=== PATIENT | female | born 1985 | race Caucasian/White ===

== ENCOUNTER 2023-09-05 07:29 | Emergency (ER) | payer BC, SELFPAY ==
[2023-09-05 07:36] VITALS: BP 154/95
--- NOTE | 2023-09-05 08:18 | ED.GENMED ---
History of Present Illness
General
Chief Complaint: Female Bung Dropper/Gu symptoms
Source: patient
Exam Limitations: none
Time Seen by Provider: 09/05/23 08:10
Nursing documentation reviewed up to this point in time: agreed with
Travel History
Have you had any contact with someone who has COVID-19?: No
Do you have any symptoms of coronavirus? Fever > 100 degrees, chills, cough, shortness of breath, sore throat, loss of taste or smell, muscle aches, or headache?: No
History of Present Illness
History of Present Illness:
Patient presents to ED secondary to recurrent right flank with nausea sensation, which woke the patient up from sleep this morning at 3:30 AM. Patient has had multiple similar symptoms in the past, secondary to kidney stones. Patient proceeded to
take Percocet at that time, which did not alleviate her symptoms. Patient's last kidney stones episode was in March 2023, when she was seen at [facility], where she received lithotripsy and stent placement. Denies vomiting. Denies fever.
Denies trauma. Denies recent illness. Denies recent change activities. Denies difficulty with urination.
Past History
Past History
ED Past Medical History: Asthma and Other (kidney stones)
ED Past Surgical History: Urological (cysto/stents)
Social History
Tobacco: Non-smoker
Personal:
Living: with family
Review of Systems
Review of Systems
Allergies reviewed?: Yes
All Other Systems: ROS reviewed and negative except as documented in HPI and ROS
Constitutional: Reports no symptoms; Denies fever
ABD/GI: Reports nausea and vomiting
: Reports flank pain; Denies difficulty voiding
Musculoskeletal: Reports no symptoms
Skin: Reports no symptoms
Neurological: Reports no symptoms
Phy Exam
Physical Exam
Physical Exam:
Physical Exam
General: mild painful distress, not acutely ill. afebrile
Head: nc/at. eomi
Neck: supple. normal range of motion
Abdomen: normal bowel sounds. not tender.
Neuro: alert and oriented. no focal neurological deficits
Skin: no rash
Psychiatric: well kept. interactive and cooperative
Extremities: no edema. no calf tenderness.
Course
Orders/Labs/Results
Orders:
Orders
09/05/23 08:17
0.9% Sodium Chloride 500 ml [Nss] 500 ml IV BOLUS
Ketorolac [Toradol] 30 mg IV NOW STA
Ondansetron Injectable [Zofran] 4 mg IV NOW STA
Test Result ONCE
US Renal Only W/O Bladder Urgent
Comment:
Reason For Exam: right flank pain w hx kidney stones
09/05/23 08:33
Basic Metabolic Panel Urgent
Complete Blood Count/With Diff Urgent
HCG, Serum Qualitative Screen Urgent
Urinalysis Reflex To Culture Urgent
Date Specimen was Collected: 09/05/23
Time Specimen was Collected: 08:32
Urine Microscopic Reflex Cult Urgent
09/05/23 10:18
Morphine Sulfate 2 mg .ROUTE .STK-MED ONE
09/05/23 10:19
Morphine Sulfate 2 mg IV NOW STA
09/05/23 11:53
CR Abdomen - 1 View Urgent
Comment:
Reason For Exam: right flank pain w hx kidney stone
09/05/23 13:12
HYDROmorphone [Dilaudid] 0.5 mg .ROUTE .STK-MED ONE
HYDROmorphone [Dilaudid] 0.5 mg IV NOW STA
09/05/23 13:57
CT Abd/pel Without Iv Or Oral Urgent
Comment:
Reason For Exam: right flank pain with hematuria
09/05/23 15:43
Morphine Sulfate 2 mg IV NOW STA
Abnormal Lab Results
09/05/23
08:33
MCH 31.6 H pg
(27.0-31.0)
Glucose 111 H mg/dl
(70-99)
Ur Occult Blood Reflex 2+ A
(Negative)
Leukocyte Esterase Rfl Trace A
(Negative)
Urine RBC 40-50 A /HPF
(0-2)
Urine Bacteria (Reflex) Few A
(Negative)
09/05/23 08:33
09/05/23 08:33
Vital Signs
Initial and Last Documented VS:
Initial Vital Signs
Temp Pulse Resp BP Pulse Ox
97.9 F 104 18 154/95 98
09/05/23 07:36 09/05/23 07:36 09/05/23 07:36 09/05/23 07:36 09/05/23 07:36
Last Documented Vital Signs
Temp Pulse Resp BP Pulse Ox
98.1 F 82 18 138/90 98
09/05/23 13:17 09/05/23 15:50 09/05/23 15:50 09/05/23 15:50 09/05/23 15:50
MDM/Problems Addressed
MDM/Problems Addressed:
Patient with moderate improvement in symptoms after treatment. Patient remains afebrile and hemodynamically stable. Patient with likely recurrent renal colic, secondary to obstructing stone. However, urinalysis without any evidence of infection
with normal kidney function. As such, we will withhold CT scan at this time, and refer patient to urology for an outpatient follow-up. Patient will return to ED with worsening symptoms, i.e. fever/worsening pain/inability urinate. Patient
expresses understanding at time of discharge. Patient states that she has enough Flomax tablets at home. As such, patient will be given prescription for Percocet and Zofran ODT.
*Critical Care Note
Total Time (30-74mins, 75-104mins- exclusive of procedures): Not Applicable
ED Attending Note
-
Portions of this chart may have been created with voice recognition software.� Occasional wrong word or��sound alike� substitutions may have occurred due to the inherent limitations of voice recognition software.
Discharge Plan
Departure
Patient Disposition: Home (Routine Discharge)
Date of Disposition: 09/05/23
Time of Disposition: 15:26
Patient with high blood pressure during this ER visit?: Yes
Discharge Problem:
Hydronephrosis with renal and ureteral calculous obstruction
Instructions: Renal Colic (DC)
Prescriptions:
New
oxycodone-acetaminophen [Percocet] 5-325 mg Tablet
1 tab PO Q6HPRN PRN (Reason: pain) Qty: 12 0RF
ondansetron 4 mg Tablet,Disintegrating
4 mg PO TIDPRN PRN (Reason: nausea/vomiting) Qty: 12 0RF
No Action
hydrochlorothiazide 25 MG tablet
25 mg PO DAILY
sertraline 50 MG tablet
75 mg PO DAILY
cetirizine 10 MG tablet
10 mg PO HS
amitriptyline 25 MG tablet
25 mg PO DAILY
Patient Comments:
on hold
levofloxacin [Levaquin] 500 MG tablet
500 mg PO DAILY
doxycycline hyclate 100 MG capsule
100 mg PO BID Qty: 5 0RF
Referrals:
Eliceo Zamorano MD [Active] -
Irma Moran CRNP [Family Provider] -
Activity Restrictions/Additional Instructions:
As discussed, please follow-up with your urologist for further evaluation and treatment. Please return to ED with worsening symptoms, i.e. fever/worsening pain/inability to urinate/vomiting. Your prescriptions have been sent electronically to [facility]
pharmacy in [place].
Interventions
Interventions:
*Risk Screen - Suicide Last Done: 09/05/23 07:36
*General Assessment Last Done: 09/05/23 07:36
*Neglect/Abuse Screening Last Done: 09/05/23 07:36
ED- Fall Risk Assessment Last Done: 09/05/23 16:21
*ED COVID-19 Vaccine History Last Done: 09/05/23 07:36
*Nursing Disposition Last Done: 09/05/23 16:21
ED-Female Genitourinary Assessment Last Done: 09/05/23 08:39
Discharge Date and Time
Discharge Date/Time: 09/05/23 16:21
[2023-09-05 08:24] VITALS: BMI 31.9
[2023-09-05] MEDS: TORADOL 30 MG IV (08:34)
[2023-09-05] MEDS: ZOFRAN 4 MG IV (08:36)
[2023-09-05] MEDS: NSS 500 IV (08:38)
[2023-09-05 09:09] LABS: % Basophils 0.4 % (0-2); % Eosinophils 1.8 % (0-6); % Immature Granulocytes 0.4 % (0-0.5); % Lymphocytes 36.6 % (20.5-51.1); % Monocytes 7.3 % (1.7-9.3); % Neutrophils 53.5 % (42.2-75.2); Absolute Eosinophils 0.2 10^3/uL (0-0.7); Absolute Monocytes 0.6 10^3/uL (0.1-0.6); Absolute Neutrophils 4.4 10^3/uL (1.4-6.5); Hematocrit 40.2 % (37.0-47.0); Hemoglobin 14.7 g/dL (12.0-16.0); Mean Corp Hgb Conc. 36.6 g/dL (33.0-37.0); Mean Corpuscular Hgb 31.6 pg (27.0-31.0); Mean Corpuscular Volume 86.5 fL (81.0-99.0); Mean Platelet Volume 9.5 fL (7.4-10.4); Nucleated Red Blood Cells % 0 %; Platelet Count 305 10^3/uL (130-400); Red Blood Cell Count 4.65 10^6/uL (4.20-5.40); Red Cell Dist. Width 11.8 % (11.5-14.5); White Blood Cell Count 8.3 10^3/uL (4.8-10.8)
[2023-09-05 09:10] LABS: Urine Albumin Trace (Neg - Trace); Urine Bilirubin Negative (Negative); Urine Character Clear (Clear); Urine Color Straw; Urine Glucose Negative (Negative); Urine Ketone Negative (Negative); Urine Leukocyte Trace (Negative); Urine Nitrite Negative (Negative); Urine Occult Blood 2+ (Negative); Urine Urobilinogen Negative (Neg - 1+)
[2023-09-05 09:20] LABS: HCG, Serum Qualitative Screen Negative; Urine Squamous Cell 16-20 /LPF (Few)
[2023-09-05 09:21] LABS: Urine Bacteria Few (Negative); Urine Red Blood Cell 40-50 /HPF (0-2)
[2023-09-05 09:27] LABS: Blood Urea Nitrogen 15 mg/dl (7-17); Calcium 9.5 mg/dl (8.4-10.2); Carbon Dioxide 26 mmol/L (22-30); Chloride 101 mmol/L (98-107); Estimated Creatinine Clearance > 125 ml/min; Glucose 111 mg/dl (70-99); Potassium 4.3 mmol/L (3.5-5.1); Sodium 138 mmol/L (135-145); eGFR > 60.00
[2023-09-05] MEDS: MORPHINE SULFATE 2 MG IV ×2 (10:19→15:45)
[2023-09-05] MEDS: DILAUDID 0.5 MG IV (13:14)
[2023-09-05 13:17] VITALS: BP 132/90
[2023-09-05 15:50] VITALS: BP 138/90
== END 2023-09-05 16:21 | disposition home or self-care (01) ==
LOC: EMR 07:29
PROVIDERS: EMERGENCY PHYSICIAN Emergency Medicine; FAMILY PHYSICIAN Nurse Practitioner
DX: N13.2 Hydronephrosis with renal and ureteral calculous obstruction (principal); R03.0 Elevated blood-pressure reading, without diagnosis of hypertension; Z87.442 Personal history of urinary calculi
CPT/HCPCS: 99285; 96374; 96375 ×3; 96361; 96376; 74018; 74176; 76775; 80048; 81003; 81015; 84703; 85025

== ENCOUNTER 2024-05-28 09:08 | Emergency (ER) | payer BC, SELFPAY ==
[2024-05-28 09:16] VITALS: BP 144/101
[2024-05-28 09:33] LABS: Urine Albumin Negative (Neg - Trace); Urine Bilirubin Negative (Negative); Urine Character Clear (Clear); Urine Color Yellow; Urine Glucose Negative (Negative); Urine Ketone Negative (Negative); Urine Leukocyte Trace (Negative); Urine Nitrite Negative (Negative); Urine Occult Blood Negative (Negative); Urine Urobilinogen Negative (Neg - 1+)
[2024-05-28 09:37] VITALS: BMI 32.4
--- NOTE | 2024-05-28 09:45 | ED.GENMED ---
History of Present Illness
General
Chief Complaint: Flank Pain
Time Seen by Provider: 05/28/24 09:20
History of Present Illness
History of Present Illness:
39-year-old female with history of multiple kidney stones presenting to the emergency department for left-sided flank pain. Patient reports symptoms started midnight yesterday, worsened at 7 AM this morning. Reports that symptoms feel similar to
prior kidney stones. She reports history of lithotripsy and stenting. She tried Flomax at home as well as Percocet without significant relief. Notes nausea without vomiting. Reports urinary urgency, denies dysuria. Denies chest pain or
difficulty breathing. Reports some left-sided abdominal pain. Denies any fever. Denies additional acute medical complaints
Past History
Past History
ED Past Medical History: Asthma and Other (kidney stones)
ED Past Surgical History: Urological (cysto/stents)
Social History
Tobacco: Non-smoker
Personal:
Living: with family
Phy Exam
Physical Exam
Physical Exam:
General: Well-appearing, no clinical signs of dehydration, nontoxic and in no acute distress
HEENT: protecting airway
Neck: appears supple
CV: Normal heart rate, regular rhythm
Resp: No accessory muscle use, no increased work of breathing, lungs clear to auscultation bilaterally
Abd: Soft and non-distended, minimal tenderness to the left lower quadrant and left CVA
Extremities: No deformities, no swelling
Neuro: alert, no focal neurologic deficit
: deferred
Rectal: deferred
Psych: Normal affect
Skin: Intact
Course
Orders/Labs/Results
Orders:
Orders
05/28/24 09:24
HCG, Urine Qualitative Screen Urgent
Date Specimen was Collected: 05/28/24
Time Specimen was Collected: 09:23
Comment: ADD ON
Urinalysis Reflex To Culture Urgent
Date Specimen was Collected: 05/28/24
Time Specimen was Collected: 09:23
Urine Microscopic Reflex Cult Urgent
05/28/24 09:38
CT Abd/pel Without Iv Or Oral Urgent
Comment:
Reason For Exam: L-flank, hx stones
HCG, Urine Qualitative Screen Urgent
0.9% Sodium Chloride 1000 ml [Nss] 1,000 ml IV BOLUS
HYDROmorphone [Dilaudid] 1 mg IV NOW STA
Ondansetron Injectable [Zofran] 4 mg IV NOW STA
Test Result ONCE
05/28/24 09:40
Add On- LAB Urgent
Tests Added?: Urine HCG
05/28/24 09:57
Complete Blood Count/With Diff Urgent
Comprehensive Metabolic Panel Urgent
05/28/24 10:31
HYDROmorphone [Dilaudid] 1 mg IV NOW STA
05/28/24 11:24
NSS 1000mL Bolus WIDE OPEN 0.9% Sodium Chloride 1000 ml [Nss] 1,000 ml IV BOLUS
Abnormal Lab Results
05/28/24 05/28/24
09:24 09:57
Hct 36.5 L %
(37.0-47.0)
MCH 31.4 H pg
(27.0-31.0)
Potassium 3.2 L mmol/L
(3.5-5.1)
Glucose 105 H mg/dl
(70-99)
Leukocyte Esterase Rfl Trace A
(Negative)
05/28/24 09:57
05/28/24 09:57
Vital Signs
Initial and Last Documented VS:
Initial Vital Signs
Temp Pulse Resp BP Pulse Ox
98.0 F 96 18 144/101 99
05/28/24 09:16 05/28/24 09:16 05/28/24 09:16 05/28/24 09:16 05/28/24 09:16
Last Documented Vital Signs
Temp Pulse Resp BP Pulse Ox
98.0 F 74 16 115/83 99
05/28/24 09:16 05/28/24 10:30 05/28/24 10:30 05/28/24 10:30 05/28/24 09:16
MDM/Problems Addressed
MDM/Problems Addressed:
39-year-old female with history of kidney stones presenting with concern of kidney stone. Vital signs on arrival are significant for mild hypertension.
On exam patient is resting comfortably, no acute distress. Benign cardiac and pulmonary exam. Minimal tenderness to the left lower quadrant of the abdomen and left flank. On review of EMR, multiple visits for similar symptoms in the past,
consistent with kidney stone. At this time do suspect kidney stone. Lower suspicion for infected kidney stone, nontoxic. Patient offered ultrasound rather than CT, however explains that she would prefer to proceed with CT. For this reason we
will obtain laboratory analysis, urinalysis, CT imaging. Patient requesting Dilaudid for pain. Will also administer IV fluids and Zofran
11:20 -pain has improved. No signs of infection, no leukocytosis, no signs of infection in urine. CT is consistent with a 3 mm stone. Given size, suspect that it will hopefully pass on its own. Patient is requesting more IV fluids, reports that
during the past. Will administer with ultimate plan for outpatient follow-up and pain management at home. Patient reports that she takes Percocet at home for kidney stones. Will prescribe. Otherwise remains hemodynamically stable, stable for
discharge
*Critical Care Note
Total Time (30-74mins, 75-104mins- exclusive of procedures): Not Applicable
ED Attending Note
-
Portions of this chart may have been created with voice recognition software.� Occasional wrong word or��sound alike� substitutions may have occurred due to the inherent limitations of voice recognition software.
Discharge Plan
Departure
Patient with high blood pressure during this ER visit?: Yes
Condition: Good
Discharge Problem:
Hydronephrosis with renal and ureteral calculous obstruction
Instructions: Kidney Stones (DC), How to Strain Your Urine, BLOOD PRESSURE, Narcotic Pain Medication
Prescriptions:
New
oxycodone-acetaminophen [Endocet] 5-325 mg tablet
1 tab PO Q8H PRN (Reason: Pain) Qty: 9 0RF
No Action
hydrochlorothiazide 25 MG tablet
25 mg PO DAILY
sertraline 50 MG tablet
75 mg PO DAILY
cetirizine 10 MG tablet
10 mg PO HS
amitriptyline 25 MG tablet
25 mg PO DAILY
Patient Comments:
on hold
levofloxacin [Levaquin] 500 MG tablet
500 mg PO DAILY
doxycycline hyclate 100 MG capsule
100 mg PO BID Qty: 5 0RF
oxycodone-acetaminophen [Percocet] 5-325 mg Tablet
1 tab PO Q6HPRN PRN (Reason: pain) Qty: 12 0RF
ondansetron 4 mg Tablet,Disintegrating
4 mg PO TIDPRN PRN (Reason: nausea/vomiting) Qty: 12 0RF
Referrals:
Anam Leroy MD [Active] -
Irma Moran CRNP [Family Provider] -
Activity Restrictions/Additional Instructions:
You were seen in the emergency department for kidney stone
You were found to have a 3 mm left-sided kidney stone
Please follow-up closely with your urologist. Continue to take your Flomax at home.
Return to the emergency department for any worsening of your symptoms, or any development of chest pain, difficulty breathing, abdominal pain with persistent vomiting and inability to tolerate food or liquid by mouth (concern for dehydration),
weakness, headache or confusion, fever greater than 100.4, or any additional symptoms that are concerning to you.
Thank you for choosing [facility].
Interventions
Interventions:
*Risk Screen - Suicide Last Done: 05/28/24 09:16
*General Assessment Last Done: 05/28/24 09:16
*Neglect/Abuse Screening Last Done: 05/28/24 09:21
ED- Fall Risk Assessment Last Done: 05/28/24 09:59
*ED COVID-19 Vaccine History Last Done: 05/28/24 09:37
CK-Wgkhik-Ddvthoahcd Assessment Last Done: 05/28/24 09:38
ED-Female Genitourinary Assessment Last Done: 05/28/24 09:38
Discharge Date and Time
Print Language: PERSIAN
[2024-05-28] MEDS: DILAUDID 1 MG IV ×3 (09:54→12:55)
[2024-05-28] MEDS: ZOFRAN 4 MG IV (09:54)
[2024-05-28] MEDS: NSS 1000 IV ×2 (09:55→11:53)
[2024-05-28 10:06] LABS: Urine Amorphous Seen; Urine Mucus Many
[2024-05-28 10:07] LABS: Urine Red Blood Cell 0-2 /HPF (0-2); Urine White Cell 0-2 /HPF (0-5)
[2024-05-28 10:09] LABS: % Basophils 0.7 % (0-2); % Eosinophils 2.3 % (0-6); % Immature Granulocytes 0.4 % (0-0.5); % Neutrophils 54.6 % (42.2-75.2); Absolute Basophils 0.1 10^3/uL (0-0.2); Absolute Eosinophils 0.2 10^3/uL (0-0.7); Absolute Lymphocytes 2.6 10^3/uL (1.2-3.4); Absolute Monocytes 0.5 10^3/uL (0.1-0.6); Hematocrit 36.5 % (37.0-47.0); Hemoglobin 13.3 g/dL (12.0-16.0); Mean Corp Hgb Conc. 36.4 g/dL (33.0-37.0); Mean Corpuscular Hgb 31.4 pg (27.0-31.0); Mean Corpuscular Volume 86.1 fL (81.0-99.0); Mean Platelet Volume 9.7 fL (7.4-10.4); Nucleated Red Blood Cells % 0 %; Platelet Count 278 10^3/uL (130-400); Red Blood Cell Count 4.24 10^6/uL (4.20-5.40); Red Cell Dist. Width 12.6 % (11.5-14.5); White Blood Cell Count 7.4 10^3/uL (4.8-10.8)
[2024-05-28 10:13] LABS: HCG, Urine Qualitative Screen Negative
[2024-05-28 10:23] LABS: ALT (SGPT) 29 U/L (0-35); AST (SGOT) 29 U/L (14-36); Albumin 4.3 g/dl (3.5-5.0); Alkaline Phosphatase 46 U/L (38-126); Blood Urea Nitrogen 17 mg/dl (7-17); Calcium 9.2 mg/dl (8.4-10.2); Carbon Dioxide 28 mmol/L (22-30); Chloride 99 mmol/L (98-107); Estimated Creatinine Clearance 93 ml/min; Glucose 105 mg/dl (70-99); Potassium 3.2 mmol/L (3.5-5.1); Sodium 140 mmol/L (135-145); Total Bilirubin 0.3 mg/dl (0.2-1.3); Total Protein 7.1 g/dl (6.3-8.2); eGFR > 60.00
[2024-05-28 10:30] VITALS: BP 115/83
[2024-05-28 12:25] VITALS: BP 120/82
== END 2024-05-28 14:10 | disposition home or self-care (01) ==
LOC: EMR 09:08
PROVIDERS: EMERGENCY PHYSICIAN Student in an Organized Health Care Education/Training Program; FAMILY PHYSICIAN Nurse Practitioner
DX: N13.2 Hydronephrosis with renal and ureteral calculous obstruction (principal); J45.909 Unspecified asthma, uncomplicated
CPT/HCPCS: 99284; 96374; 96375; 96376; 96361; 74176; 80053; 81003; 81015; 81025; 85025

== ENCOUNTER 2024-06-18 09:50 | Emergency (ER) | payer BC, SELFPAY ==
[2024-06-18 09:51] VITALS: BP 128/95
--- NOTE | 2024-06-18 10:42 | ED.GENMED ---
History of Present Illness
General
Chief Complaint: Abdominal Symptoms
Time Seen by Provider: 06/18/24 10:42
History of Present Illness
History of Present Illness:
TIME OF INITIAL ENCOUNTER: 10:45 AM
HPI: About 7 days ago, on the day that the patient came back from [place], she started having diarrhea. She has been intermittently having sharp stabbing pain as well. She went to urgent care 5 days ago and was encouraged to go to the emergency
department if her symptoms worsened. 2 days ago, she had blood work which apparently were unremarkable other than transaminases in the 50s. This does not feel like prior kidney stones.
EXAM:
GENERAL: Well appearing in no significant distress
HEENT: Moist oral mucosa
CARDIOVASCULAR: No murmurs, normal heart rate, regular rhythm, No chest wall tenderness
PULMONARY: No respiratory distress, breath sounds are clear and equal
ABDOMEN: Soft with no peritoneal signs, no tenderness
NEUROLOGIC: Excellent strength all extremities, no coordination deficits
PSYCHIATRIC: Appropriate mental status, normal insight and judgement
EXTREMITIES: Nontender, no edema, moves all extremities equally
SKIN: No rash, no lesions
NUMBER AND COMPLEXITY OF PROBLEMS ADDRESSED AT THE ENCOUNTER
� Chronic conditions affecting care: Frequent kidney stones
� Acute Exacerbation and/or Progression of Chronic Illness: This is an acute problem
� Differential Diagnosis includes: Gastroenteritis, viral syndrome, foodborne illness, C. difficile, colitis
AMOUNT AND/OR COMPLEXITY OF DATA TO BE REVIEWED AND ANALYZED
� I performed an independent evaluation of and my interpretation is:
EKG: Sinus 80, normal axis, normal intervals other than borderline first-degree AV block
CT:
X-rays:
Laboratory Studies: White count is normal at 8.8, hemoglobin is 15.2, potassium is 2.8, and transaminases are slightly elevated with an AST of 53 and ALT of 82 however the total bili is 0.6, lipase is also slightly elevated at
346, hCG negative
Other:
� Review of other/old records: I reviewed records, the patient had a CT of the abdomen pelvis 3 weeks ago that showed a 3 mm stone in the distal left ureter
� Clinical information was obtained by an independent historian: I spoke to at bedside
� Prescriptions/Medications Considered but not given:
� Further testing considered but not performed: Considered imaging however the patient does not have a gallbladder and CT imaging was obtained just 3 weeks ago
RISK OF COMPLICATIONS AND/OR MORBIDITY OR MORTALITY OF PATIENT MANAGEMENT
� Social determinants of health affecting care: Lives at home, was recently in [place]
� Discussion with other providers:
� Escalation of care including admission/observation vs risk of discharge considered: The patient was given Zofran and fluids
ANY OTHER UPDATES:
1 PM: I initially suggested trying oral replacement of potassium. She states she does not feel that she would be able to tolerate potassium. Will give IV potassium and keep in the emergency department for an extended period of time while potassium
infusing. She has remained comfortable in appearance and only intermittently has some stabbing episodes of pain.
Past History
Past History
ED Past Medical History: Asthma and Other (kidney stones)
ED Past Surgical History: Urological (cysto/stents)
Social History
Tobacco: Non-smoker
Personal:
Living: with family
Phy Exam
Physical Exam
Physical Exam:
See HPI
Course
Orders/Labs/Results
Orders:
Orders
06/18/24 10:51
Test Result ONCE
06/18/24 10:52
Complete Blood Count/With Diff Urgent
Comprehensive Metabolic Panel Urgent
HCG, Serum Qualitative Screen Urgent
Lipase Urgent
06/18/24 10:56
0.9% Sodium Chloride 1000 ml [Nss] 1,000 ml IV BOLUS
06/18/24 10:59
Ondansetron Injectable [Zofran] 4 mg IV NOW STA
06/18/24 12:48
Potassium Chloride Powder [Klor-Con] 60 meq PO NOW STA
06/18/24 13:00
Electrocardiogram (*1) Urgent
Reason for Study: Other
Other Reason for Exam: hypokalemia
EKG- Treatment ONCE
Ketorolac [Toradol] 15 mg IV NOW STA
06/18/24 13:16
Potassium Chloride [KCl] 40 meq 0.9% Sodium Chloride 250 ml [Nss] 250 ml IV NOW
Abnormal Lab Results
06/18/24
10:52
MCH 31.7 H pg
(27.0-31.0)
Absolute Monos (auto) 0.7 H 10^3/uL
(0.1-0.6)
Potassium 2.8 L mmol/L
(3.5-5.1)
Glucose 105 H mg/dl
(70-99)
AST 53 H U/L
(14-36)
ALT 82 H U/L
(0-35)
Lipase 346 H U/L
(23-300)
06/18/24 10:52
06/18/24 10:52
Vital Signs
Initial and Last Documented VS:
Initial Vital Signs
Temp Pulse Resp BP Pulse Ox
98.3 F 100 16 128/95 98
06/18/24 09:51 06/18/24 09:51 06/18/24 09:51 06/18/24 09:51 06/18/24 09:51
Last Documented Vital Signs
Temp Pulse Resp BP Pulse Ox
98.3 F 86 16 106/65 97
06/18/24 09:51 06/18/24 17:34 06/18/24 17:34 06/18/24 17:34 06/18/24 17:34
*Critical Care Note
Total Time (30-74mins, 75-104mins- exclusive of procedures): Not Applicable
ED Attending Note
-
Portions of this chart may have been created with voice recognition software.� Occasional wrong word or��sound alike� substitutions may have occurred due to the inherent limitations of voice recognition software.
Discharge Plan
Departure
Patient Disposition: Home (Routine Discharge)
Date of Disposition: 06/18/24
Time of Disposition: 12:59
Patient with high blood pressure during this ER visit?: Yes
Discharge Problem:
Acute hypokalemia
Instructions: Diarrhea in teens and adults, Hypokalemia
Prescriptions:
No Action
hydrochlorothiazide 25 MG tablet
25 mg PO DAILY
sertraline 50 MG tablet
75 mg PO DAILY
cetirizine 10 MG tablet
10 mg PO HS
amitriptyline 25 MG tablet
25 mg PO DAILY
Patient Comments:
on hold
levofloxacin [Levaquin] 500 MG tablet
500 mg PO DAILY
doxycycline hyclate 100 MG capsule
100 mg PO BID Qty: 5 0RF
oxycodone-acetaminophen [Percocet] 5-325 mg Tablet
1 tab PO Q6HPRN PRN (Reason: pain) Qty: 12 0RF
ondansetron 4 mg Tablet,Disintegrating
4 mg PO TIDPRN PRN (Reason: nausea/vomiting) Qty: 12 0RF
oxycodone-acetaminophen [Endocet] 5-325 mg tablet
1 tab PO Q8H PRN (Reason: Pain) Qty: 9 0RF
Referrals:
Irma Moran CRNP [Family Provider] -
Activity Restrictions/Additional Instructions:
Your potassium level is low at 2.8�we have given you IV potassium replacement. Pancreas and transaminase numbers are just minimally elevated.
Interventions
Interventions:
*Risk Screen - Suicide Last Done: 06/18/24 09:51
*General Assessment Last Done: 06/18/24 09:51
*Neglect/Abuse Screening Last Done: 06/18/24 09:51
*ED COVID-19 Vaccine History Last Done: 06/18/24 09:51
*Nursing Disposition Last Done: 06/18/24 17:52
UV-Diylyv-Ffvchefbsc Assessment Last Done: 06/18/24 11:00
Discharge Date and Time
Discharge Date/Time: 06/18/24 17:52
Print Language: QATARI
[2024-06-18 10:51] VITALS: BMI 31.3
[2024-06-18] MEDS: NSS 1000 IV (11:02)
[2024-06-18 11:04] LABS: Hematocrit 41.3 % (37.0-47.0); Hemoglobin 15.2 g/dL (12.0-16.0); Mean Corp Hgb Conc. 36.8 g/dL (33.0-37.0); Mean Corpuscular Hgb 31.7 pg (27.0-31.0); Mean Platelet Volume 9.2 fL (7.4-10.4); Platelet Count 311 10^3/uL (130-400); Red Cell Dist. Width 11.9 % (11.5-14.5); White Blood Cell Count 8.8 10^3/uL (4.8-10.8)
[2024-06-18] MEDS: ZOFRAN 4 MG IV (11:10)
[2024-06-18 11:11] LABS: ALT (SGPT) 82 U/L (0-35); AST (SGOT) 53 U/L (14-36); Albumin 4.8 g/dl (3.5-5.0); Alkaline Phosphatase 79 U/L (38-126); Blood Urea Nitrogen 11 mg/dl (7-17); Calcium 9.5 mg/dl (8.4-10.2); Carbon Dioxide 25 mmol/L (22-30); Chloride 99 mmol/L (98-107); Estimated Creatinine Clearance 103 ml/min; Glucose 105 mg/dl (70-99); HCG, Serum Qualitative Screen Negative; Lipase 346 U/L (23-300); Potassium 2.8 mmol/L (3.5-5.1); Sodium 138 mmol/L (135-145); Total Bilirubin 0.6 mg/dl (0.2-1.3); Total Protein 7.9 g/dl (6.3-8.2); eGFR > 60.00
[2024-06-18 11:54] LABS: % Basophils 0.8 % (0-2); % Eosinophils 1.8 % (0-6); % Immature Granulocytes 0.5 % (0-0.5); % Monocytes 7.7 % (1.7-9.3); % Neutrophils 57.2 % (42.2-75.2); Absolute Basophils 0.1 10^3/uL (0-0.2); Absolute Eosinophils 0.2 10^3/uL (0-0.7); Absolute Lymphocytes 2.8 10^3/uL (1.2-3.4); Absolute Monocytes 0.7 10^3/uL (0.1-0.6); Nucleated Red Blood Cells % 0 %
[2024-06-18] MEDS: KCL 270 MEQ IV (13:37)
[2024-06-18] MEDS: TORADOL 15 MG IV (13:37)
[2024-06-18 17:34] VITALS: BP 106/65
== END 2024-06-18 17:52 | disposition home or self-care (01) ==
LOC: EMR 09:50
PROVIDERS: EMERGENCY PHYSICIAN Emergency Medicine; FAMILY PHYSICIAN Nurse Practitioner
DX: E87.6 Hypokalemia (principal); J45.909 Unspecified asthma, uncomplicated; Z87.442 Personal history of urinary calculi
CPT/HCPCS: 99283; 96374; 96375; 96361; 80053; 83690; 84703; 85025; 93005

== ENCOUNTER 2024-08-16 19:15 | Emergency (ER) | payer BC, SELFPAY ==
[2024-08-16 19:18] VITALS: BP 137/95
[2024-08-16 19:38] LABS: % Basophils 0.6 % (0-2); % Eosinophils 2.3 % (0-6); % Immature Granulocytes 0.3 % (0-0.5); % Monocytes 6.2 % (1.7-9.3); % Neutrophils 47.6 % (42.2-75.2); Absolute Basophils 0.1 10^3/uL (0-0.2); Absolute Eosinophils 0.2 10^3/uL (0-0.7); Absolute Lymphocytes 3.4 10^3/uL (1.2-3.4); Absolute Monocytes 0.5 10^3/uL (0.1-0.6); Absolute Neutrophils 3.8 10^3/uL (1.4-6.5); Hematocrit 37.9 % (37.0-47.0); Hemoglobin 13.4 g/dL (12.0-16.0); Mean Corp Hgb Conc. 35.4 g/dL (33.0-37.0); Mean Corpuscular Hgb 31.5 pg (27.0-31.0); Mean Platelet Volume 9.2 fL (7.4-10.4); Nucleated Red Blood Cells % 0 %; Platelet Count 273 10^3/uL (130-400); Red Blood Cell Count 4.26 10^6/uL (4.20-5.40); Red Cell Dist. Width 12.6 % (11.5-14.5)
[2024-08-16 19:39] LABS: Urine Albumin Negative (Neg - Trace); Urine Bilirubin Negative (Negative); Urine Character Clear (Clear); Urine Color Yellow; Urine Glucose Negative (Negative); Urine Ketone Negative (Negative); Urine Leukocyte Negative (Negative); Urine Nitrite Negative (Negative); Urine Occult Blood Negative (Negative); Urine Urobilinogen Negative (Neg - 1+)
[2024-08-16 19:51] LABS: ALT (SGPT) 29 U/L (0-35); AST (SGOT) 31 U/L (14-36); Albumin 4.2 g/dl (3.5-5.0); Alkaline Phosphatase 53 U/L (38-126); Blood Urea Nitrogen 14 mg/dl (7-17); Calcium 9.3 mg/dl (8.4-10.2); Carbon Dioxide 23 mmol/L (22-30); Chloride 107 mmol/L (98-107); Glucose 98 mg/dl (70-99); Potassium 3.9 mmol/L (3.5-5.1); Sodium 138 mmol/L (135-145); Total Bilirubin 0.3 mg/dl (0.2-1.3); Total Protein 7.1 g/dl (6.3-8.2); eGFR > 60.00
--- NOTE | 2024-08-16 19:59 | ED.GENMED ---
History of Present Illness
General
Chief Complaint: Flank Pain
Source: patient
Time Seen by Provider: 08/16/24 19:52
History of Present Illness
History of Present Illness:
39-year-old female presents emergency department complaints of left flank pain that started last night. She took Flomax and Percocet was able to go to bed. She woke this morning with the pain very mild in intensity but is gotten progressively
worse despite taking a Percocet at 2 PM. Patient describes the pain as 'sharp', comes and goes without specific provoking or relieving factors. She denies urinary symptoms, fever, chills, chest pain, dyspnea, vomiting but she does have nausea.
Symptoms are very consistent with prior episodes of kidney stones.
Past History
Past History
ED Past Medical History: Asthma and Other (kidney stones)
ED Past Surgical History: Urological (cysto/stents)
Social History
Tobacco: Non-smoker
Alcohol: None
Drug: None
Personal:
Living: with family
Phy Exam
Physical Exam
Physical Exam:
GENERAL: Alert , in no apparent distress
EYE: pupils equal and reactive
NECK: Supple, no significant adenopathy.
ENT: o/p clr, mmm.
CARDIAC: Regular rate and rhythm .
LUNGS: Clear breath sounds bilaterally, no acute respiratory distress, no wheezes/rales/rhonchi
ABDOMEN: Soft, without focal tenderness, no r/g, no cvat
NEUROLOGICAL: Alert and oriented, no focal neuro deficits
SKIN: Warm and dry, skin intact.
MUSCULOSKELETAL: No edema, well perfused.
PSYCH: Normal and appropriate interaction.
Course
Orders/Labs/Results
Orders:
Orders
08/16/24 19:27
UA Reflex to Culture [Urinalysis Reflex To Culture] Urgent
Date Specimen was Collected: 08/16/24
Time Specimen was Collected: 19:21
08/16/24 19:31
Complete Blood Count/With Diff Urgent
Comprehensive Metabolic Panel Urgent
08/16/24 19:59
CT Abd/pel Without Iv Or Oral Stat
Comment:
Reason For Exam: Left leg pain history of kidney stones
0.9% Sodium Chloride 1000 ml [Nss] 1,000 ml IV BOLUS
Ketorolac [Toradol] 15 mg IV NOW STA
Ondansetron Injectable [Zofran] 4 mg IV NOW STA
08/16/24 20:52
Morphine Sulfate 4 mg .ROUTE .STK-MED ONE
Morphine Sulfate 4 mg IV NOW STA
08/16/24 22:17
Morphine Sulfate 4 mg IV NOW STA
Abnormal Lab Results
08/16/24
19:31
MCH 31.5 H pg
(27.0-31.0)
08/16/24 19:31
08/16/24 19:31
Vital Signs
Initial and Last Documented VS:
Initial Vital Signs
Temp Pulse Resp BP Pulse Ox
98.3 F 94 18 137/95 97
08/16/24 19:18 08/16/24 19:18 08/16/24 19:18 08/16/24 19:18 08/16/24 19:18
Last Documented Vital Signs
Temp Pulse Resp BP Pulse Ox
98.4 F 80 18 121/85 96
08/16/24 22:08 08/16/24 22:08 08/16/24 22:08 08/16/24 22:08 08/16/24 22:08
*Critical Care Note
Total Time (30-74mins, 75-104mins- exclusive of procedures): Not Applicable
Update Note
Update Note:
Patient presents to the Emergency Department with Left-sided flank pain
Number and Complexity of Problems Addressed at the Encounter
� Chronic conditions affecting care:
� Acute Exacerbation and/or Progression of Chronic Illness:
� Differential Diagnosis includes:Not limited to pyelonephritis, kidney stone, musculoskeletal pain, etc. etc.
Amount and/or Complexity of Data to be Reviewed and Analyzed
� I performed an independent evaluation of and my interpretation is:
EKG:
CT:Read by vision, 3 mm obstructing calculus in the distal left ureter associate with mild to moderate left hydroureteronephrosis. Correlation with UA to assess for superimposed infection is recommended.
Xrays:
Laboratory Studies:Unremarkable
Other:
� Review of other/old records reveals:
� Clinical information was obtained by an independent historian:
� Prescriptions/Medications Considered but not given:
� Further testing considered but not performed:
Risk of Complications and/or Morbidity or Mortality of Patient Management
� Social determinants of health affecting care:
� Discussion with other providers (PCP, Hospitalists, Consultants, etc):
� Escalation of care including admission/observation vs risk of discharge considered:UA not consistent with infection. Patient watching a show, feels comfortable but requesting 1 more dose of pain medication before discharge.
She denies new symptoms. Updated regarding her results, importance of follow-up, and reasons return to the ER.
ED Attending Note
-
Portions of this chart may have been created with voice recognition software.� Occasional wrong word or��sound alike� substitutions may have occurred due to the inherent limitations of voice recognition software.
Discharge Plan
Departure
Patient Disposition: Home (Routine Discharge)
Date of Disposition: 08/16/24
Time of Disposition: 22:03
Patient with high blood pressure during this ER visit?: Yes
Condition: Good
Discharge Problem:
Kidney stone
Instructions: Kidney Stones (DC), BLOOD PRESSURE
Prescriptions:
New
tamsulosin [Flomax] 0.4 mg capsule
0.4 mg PO DAILY Qty: 7 0RF
oxycodone-acetaminophen [Percocet] 5-325 mg tablet
1 tab PO Q4HPRN PRN (Reason: pain) Qty: 13 0RF
ondansetron HCl 4 mg tablet
4 mg PO Q8H 3 Days Qty: 9 0RF
No Action
hydrochlorothiazide 25 MG tablet
25 mg PO DAILY
sertraline 50 MG tablet
75 mg PO DAILY
cetirizine 10 MG tablet
10 mg PO HS
amitriptyline 25 MG tablet
25 mg PO DAILY
Patient Comments:
on hold
levofloxacin [Levaquin] 500 MG tablet
500 mg PO DAILY
doxycycline hyclate 100 MG capsule
100 mg PO BID Qty: 5 0RF
oxycodone-acetaminophen [Percocet] 5-325 mg Tablet
1 tab PO Q6HPRN PRN (Reason: pain) Qty: 12 0RF
ondansetron 4 mg Tablet,Disintegrating
4 mg PO TIDPRN PRN (Reason: nausea/vomiting) Qty: 12 0RF
oxycodone-acetaminophen [Endocet] 5-325 mg tablet
1 tab PO Q8H PRN (Reason: Pain) Qty: 9 0RF
Referrals:
Irma Moran CRNP [Family Provider] -
Linden Alvares MD [Active] - Follow up in 1 week
Activity Restrictions/Additional Instructions:
IF YOU DEVELOP PERSISTENT PAIN, VOMITING, FEVER, DIFFICULTY URINATING, PAIN WITH URINATION, OR OTHER WORRISOME SIGNS, PLEASE RETURN TO THE ER IMMEDIATELY.
Interventions
Interventions:
*Risk Screen - Suicide Last Done: 08/16/24 19:18
*General Assessment Last Done: 08/16/24 19:18
*Neglect/Abuse Screening Last Done: 08/16/24 19:18
*Nursing Disposition Last Done: 08/16/24 22:30
[place]-Quudvd-Ipaidkpooy Assessment Last Done: 08/16/24 20:15
ED-Female Genitourinary Assessment Last Done: 08/16/24 20:15
Discharge Date and Time
Discharge Date/Time: 08/16/24 22:30
Print Language: SENEGALESE
[2024-08-16] MEDS: TORADOL 15 MG IV (20:08)
[2024-08-16] MEDS: NSS 1000 IV (20:08)
[2024-08-16] MEDS: ZOFRAN 4 MG IV (20:08)
[2024-08-16] MEDS: MORPHINE SULFATE 4 MG IV ×2 (20:53→22:19)
[2024-08-16 22:08] VITALS: BP 121/85
== END 2024-08-16 22:30 | disposition home or self-care (01) ==
LOC: EMR 19:15
PROVIDERS: EMERGENCY PHYSICIAN Emergency Medicine; FAMILY PHYSICIAN Nurse Practitioner
DX: N13.2 Hydronephrosis with renal and ureteral calculous obstruction (principal); J45.909 Unspecified asthma, uncomplicated
CPT/HCPCS: 96374; 96375; 96376; 96361; 99284; 74176; 80053; 81003; 85025